=== PATIENT | male | born 1990 | race Hispanic/Latino ===

== ENCOUNTER 2017-06-14 22:47 | Emergency (ER) | payer SELFPAY ==
[2017-06-15] MEDS ORDERED: Ibuprofen 800 MG TAB ONE (00:12)
[2017-06-15] MEDS ORDERED: Acetaminophen 500 MG TAB ONE (00:12)
--- NOTE | 2017-06-15 09:06 | RAD ---
4 VIEWS RIGHT HAND: Date: 06/14/17 HISTORY: Right hand pain. FINDINGS: There is a remote, healed fracture involving the right fifth metacarpal. There is no evidence of an a cute fracture, dislocation, or other osseous abnormality involving the right hand. IMPRESSION: No acute osseous abnormality. POS: [email or web address]
== END 2017-06-15 00:16 ==
LOC: ERS 22:47
DX: S60.221A Contusion of right hand, initial encounter (principal); F17.210 Nicotine dependence, cigarettes, uncomplicated; V89.2XXA Person injured in unspecified motor-vehicle accident, traffic, initial encounter; W22.10XA Striking against or struck by unspecified automobile airbag, initial encounter